=== PATIENT | female | born 1950 | race Caucasian/White ===

== ENCOUNTER 2020-08-04 06:23 | Observation (INO) ==
--- NOTE | 2020-07-29 08:08 | ANES ---
Anesthesia Pre Procedure Eval HOME MEDICATIONS Ascorbic Acid [Vitamin C] 500 mg PO DAILY 07/03/12 [Last Taken Unknown] Aspirin [Aspir-Low] 81 mg PO DAILY 07/03/12 [Last Taken Unknown] Clopidogrel Bisulfate [Plavix] 75 mg PO DAILY 07/03/12 [Last Taken Unknown] Iron 18 mg PO DAILY 07/03/12 [Last Taken Unknown] Multivit-Min36/Iron/Folic Acid [Geritol Complete Tablet] 1 ea PO DAILY 07/03/12 [Last Taken Unknown] [place] Oil/[place]-3 Fatty Acids [Fish Oil] 1,200 mg PO BID 07/03/12 [Last Taken Unknown] hydroxychloroquine 200 mg tablet 200 mg PO BID 06/27/19 [Last Taken Unknown] acetaminophen 650 mg tablet,extended release 650 mg PO Q12H PRN 05/07/20 [Last Taken Unknown] magnesium 250 mg tablet 250 mg PO DAILY 06/17/20 [Last Taken Unknown] turmeric 400 mg capsule mg PO DAILY cap 06/17/20 [Last Taken Unknown] Allergies/Adverse Reactions: Allergies Allergy/AdvReac Type Severity Reaction Status Date / Time Penicillins Allergy rash Verified 06/04/20 14:26 - Planned Procedure Planned Procedure: LT Arthroplasty Total Hip Medication List Reviewed:: Yes Allergies Verified: Yes Medical History (Last Reviewed 07/29/20 @ 08:08 by Kevin Lombardi CRNA) Primary osteoarthritis of left hip (Chronic) Fracture of coronoid process of left ulna (Acute) Radial head fracture, closed (Acute) CVA (cerebral vascular accident) Onset Date: 10/08/09 massive stroke with no residual effects Essential hypertension Onset Date: 1993 Hx of ectopic Onset Date: 1989 Lupus erythematosus Onset Date: 06/2008 subacute cutaneous lupus Postmenopausal Onset Date: 06/22/12 Postmenopausal atrophic vaginitis Onset Date: 06/22/12 Seborrheic keratosis Onset Date: 06/22/12 Squamous cell carcinoma Onset Date: 2008 skin cancer on face-1990 &2008 Tachycardia Onset Date: 1993 had heart ablation don 2004 Surgical History (Last Reviewed 07/29/20 @ 08:08 by Kevin Lombardi CRNA) H/O prior ablation treatment Onset Date: 1989 done for rapid heart rate History of colonoscopy Onset Date: 07/04/12 '98 colitis. 12 Tinguely-normal. Recheck 10 yrs.- 1997, 07/04/12 History of excision of lesion Onset Date: 2008 face- basal cell-1990, 2008 History of hip replacement Onset Date: 08/2014 right- [place] History of tubal ligation Onset Date: 1979 laparoscopic tibal sterization S/P ectopic Onset Date: 1989 ectopic, status post tubal sterization, on 01/24/1990 had exploratory lap for lt ectopic preg.Removed Lt proximal tube segment, rt tube segment, lt tube and ovary. Uterus bleeding Onset Date: 1972 pt had repair of uterine wall rupture, immed . Appar had partial placenta accreta and was transfused of 4 pts blood Family History (Last Reviewed 07/29/20 @ 08:08 by Kevin Lombardi CRNA) Mother , age 65 Diabetes Cancer breast Heart failure Father , age 66 Cancer prostate Brother Alive and well Sister Hypertension Cancer lumpectomy for breast cancer Grandmother Cancer stomach Grandmother Cancer cancer on leg Osteoporosis Aunt Cancer 2 maternal aunts breast cancer, 2 paternal aunts breast cancer - Family Anesthesia History Family History:: no untoward family reactions to anesthesia - Airway/Neck/Teeth Within Normal Limits:: Yes Teeth Condition: intact - Respiratory Smoking Status: Never smoker Sleep Apnea currently treated: No Sleep Apnea by current assessment: No - Cardiovascular Cardiac History: CVA/stroke Tolerate Activity: Fair - Gastrointestinal NPO since: instructed npo after mn - Anesthesia Assessment and Plan ASA Class: PS, III Anesthesia Type Plan: Spinal Planned difficult intubation/equipment available: No
[~2020-08-04 06:23] MED LIST: MORPHINE SULFATE 15 MG TABLET.SA PO PRN; ROPIVACAINE HCL/PF 100 MG, EPINEPHrine 0.2 MG, KETOROLAC TROMETHAMINE 30 MG in NORMAL S... IJ PRN; TRANEXAMIC ACID 1,000 MG in NORMAL SALINE 100 ML IV PRN; ceFAZolin SODIUM 1 GM VIAL IV PRN
[2020-08-04] MEDS ORDERED: ISOPROPYL ALCOHOL 480 APPL BTL MC ONE (06:27)
[2020-08-04] MEDS ORDERED: ceFAZolin SODIUM 1 GM VIAL ONE (06:27)
[2020-08-04] MEDS: RINGER'S SOLUTION,LACTATED 1,000 ML IV PRN ×3 (06:56→09:45)
[2020-08-04] MEDS ORDERED: PROPOFOL VIAL IV ONE (07:09)
[2020-08-04] MEDS ORDERED: NORMAL SALINE 20 ML VIAL ONE (07:09)
[2020-08-04] MEDS ORDERED: LIDOCAINE HCL 20 ML VIAL ONE (07:09)
[2020-08-04] MEDS ORDERED: MIDAZOLAM HCL/PF 5 MG/ML VIAL ONE (07:09)
[2020-08-04] MEDS ORDERED: BUPIVACAINE HCL/EPINEPHRINE 50 ML VIAL ONE (07:10)
[2020-08-04] MEDS ORDERED: BUPIVACAINE HCL/PF 10 ML VIAL ONE (07:11)
[2020-08-04] MEDS ORDERED: ZOLPIDEM TARTRATE 5 MG TABLET PO PRN (09:47)
[2020-08-04] MEDS ORDERED: ACETAMINOPHEN 500 MG TABLET PO PRN (09:47)
[2020-08-04] MEDS ORDERED: MORPHINE SULFATE 2 MG/ML DISP.SYRIN IV PRN (09:47)
[2020-08-04] MEDS ORDERED: ONDANSETRON HCL/PF 2 MG/ML VIAL IV PRN (09:47)
[2020-08-04] MEDS ORDERED: DEXTROSE 5%-LACTATED RINGERS 1,000 ML IV PRN (09:47)
[2020-08-04] MEDS ORDERED: MAG HYDROX/ALUMINUM HYD/SIMETH 30 ML UDC PO PRN (09:47)
[2020-08-04] MEDS ORDERED: MAGNESIUM HYDROXIDE 30 ML UDC PO PRN (09:47)
[2020-08-04] MEDS ORDERED: diphenhydrAMINE HCL 50 MG/ML VIAL IV PRN (09:47)
--- NOTE | 2020-08-04 09:47 | OR ---
Operative Report - Dictated Report Narrative: Date: 08/04/2020 Preoperative diagnosis: Left hip degenerative joint disease. Postoperative diagnosis: Left hip degenerative joint disease. Procedure: Left total hip arthroplasty. Surgeon: Ronaldo Mon M.D. [employer] Manager: Aurelio Tatum PA-C (provided an essential set of skilled, educated and assisted with transfer, positioning, prepping, draping, manipulation, traction, irrigation, suturing, and placement of dressings all of which cannot be performed by the available surgical crew) Anesthesia: Spinal and local periarticular joint injection. Complications: None Specimens: Bone. Estimated blood loss: 150 milliliters. Retained implants: Depuy [place] size 5 femoral stem standard offset. Size 54 millimeter outside diameter 3-hole [place] Gription acetabular cup. 54 millimeter outside by 36 millimeter inside diameter highly cross-linked acetabular liner. 36 millimeter diameter + 8.5 millimeter cobalt chromium femoral head. Cancellous 6.5mm screw 30 millimeter length Indications: Mrs. Levy is a 70-year-old female who has had longstanding left hip pain and arthrosis. This patient was followed in my clinic for period of time with significant complaints of left hip pain consistent with arthritic changes. She failed conservative measures including but not limited to activity modification, passage of time, medications, and other conservative measures. Patient wished to proceed with surgical treatment. The risks, benefits, and alternatives were discussed in clinic. The risks of , blood clots, bleeding, infection, nerve/tendon blood vessel/ injury, malposition of components, dislocation and/or instability of joint, intraoperative fracture, postoperative limited range of motion, persistent pain, failure of components, and need for additional procedures. Patient wished to proceed. Consent was obtained after answering all questions. Procedure: After marking the correct extremity on the floor, the patient was taken to the operating room. A timeout was performed. IV antibiotics consisting of Ancef were administered prior to the procedure. A spinal anesthetic was induced by anesthesia. A Chao catheter was inserted. The patient was then transitioned to a lateral position on a well-padded pegboard. An axillary roll was placed. The head was in neutral position. The non- operative down leg was well-padded with SCD and GIOVANNA hose in place. The arms were supported and padded to protect from any undue pressure on the bony prominences and nerves. A well-padded anterior and posterior pelvic and chest posts were secured in order to maintain a stable position of the pelvis. This was placed so that the pelvis was perpendicular to the floor. The body was in line with the pelvis. Once it was felt that we had protected all the bony prominences and the patient was well secured with a safety belt as well, the leg was pre-scrubbed with alcohol, prepped and draped in a standard sterile fashion. A standard anterior lateral hip incision was marked out over the greater trochanter. [place]an drapes were then placed. The skin incision was then made. Sharp dissection with a scalpel utilizing cautery for hemostasis was carried out down to the gluteus and iliotibial band fascia. This was split in line with the skin incision. The greater trochanter bursa was excised. The anterior and posterior margins of the abductor tendon were identified. The anterior 1/2-1/3 of the tendon was tagged and reflected off the greater trochanter leaving a sleeve of tendon for repair at the completion of the case. This exposed the underlying hip joint capsule. An inverted T-type capsulotomy was made extending this up to the brim of the acetabulum. Using Homans to assist with elevation of the soft tissues off the anterior, superior, and inferior aspects of the femoral neck, the hip was then placed in a figure 4 position and the femoral head was dislocated. With the leg in an externally rotated and adducted position, the cutting flag was utilized in order to rubin for a standard femoral neck cut approximately a fingerbreadth above the level of the lesser trochanter. This was done with reference to pre-operative films and overall alignment. This was done while protecting the surrounding soft tissues with Homans. The femoral head was then removed and sized for guidance on preparation of the acetabulum. It was noted that there was loss of articular cartilage on both the femoral head and weightbearing portions of the acetabulum. We then returned the leg to the table and turned our attention to the acetabulum. While protecting the surrounding soft tissues, the labrum and remaining tissue in the fovea were excised using a scalpel and cautery. A series of reamers up to size 54 millimeter were utilized to prepare the acetabulum. The final reamer had good purchase and exposed the bleeding subchondral bone. The acetabulum was then thoroughly irrigated ensuring that all bony and cartilaginous materials were removed, and the final acetabular shell was impacted into place. This was placed in approximately 45 degrees of abduction and 20 degrees of anteversion utilizing the outrigger and body axis for alignment. This had a good press fit. 1 6.5mm cancellous screw was placed in the superior posterior quadrant of the acetabulum. The shell was then thoroughly irrigated and the final polyethylene was impacted into place ensuring that it seated completely. This was then protected with a sponge while we returned our attention to the femur. With the leg in a figure 4 position, utilizing Homans for soft tissue protection, a box cutting osteotome, followed by Rasheed awl, followed by serial reamers and broaches were utilized in order to prepare the femur. It was found that a size 5 broach gave good axial and rotational stability. The proximal femur was visualized to ensure that there were no signs of fracture. A series of heads and necks were trialed. It was found that a standard offset neck and a + 8.5 femoral head gave good overall stability. There was minimal longitudinal instability. With the leg in the position of sleep, the femoral head was well covered. Hip range of motion was able to reach full extension and external rotation to greater than 75 degrees prior to impingement along the posterior acetabulum. The hip was able to be flexed to greater than 90 degrees with internal rotation greater than 60 degrees prior to anterior impingement. The limb lengths were near equal based on comparison to the contralateral side and the prior placed limb length stitch. At this point it was felt these were the appropriately sized femoral components as well as neck and femoral head. The trial implants were removed. The femur was thoroughly irrigated. The final implants were impacted into place, and the hip was reduced. After ensuring that there was no damage to the proximal femur, the standard periarticular joint injection of ropivacaine, Toradol, and epinephrine were injected into the joint capsule and surrounding soft tissues. Anesthesia then administered intravenous tranexamic acid. The capsule was repaired with a single interrupted #1 Vicryl. The abductor tendon was repaired to the greater trochanter utilizing #5 Ethibond through drill holes. This was oversewn with #1 Vicryl. The fascia was closed with interrupted #1 Vicryl and #1 Stratafix barbed suture. The wounds were thoroughly irrigated as we closed in layers. The deep and subcutaneous fat layers were closed with 0 and 3-0 Vicryl respectively. The subcutaneous tissue was closed with a running 3-0 Vicryl and the skin charu. All sponge, needle, blade, and instrument counts were correct prior to closing the wounds. Sterile dressings consisting of xeroform, 4 x 4's, and tape were applied. The patient was awoken and transferred to her hospital bed and then to the postanesthesia care unit in stable condition. Postoperative condition: The plan is to admit to the medical/surgical inpatient floor postoperatively. There will be a projected 1 to 3 day hospital stay. Postoperatively 24 hours of IV antibiotics, pain control, physical therapy, occupational therapy, and medical comanagement will be utilized. Patient will be weightbearing as tolerated with anterior hip precautions. Postoperative films will be obtained in the recovery room.
--- NOTE | 2020-08-04 10:06 | ANES ---
Post Anesthesia Discharge - Transfer of Care Transfer of Care handoff given to nurse: Yes - Discharge from PACU Discharge from PACU when meets criteria: Yes
[2020-08-04] MEDS: ceFAZolin SODIUM 1 GM in DEXTROSE 5 % IN WATER 100 ML IV SCH ×4 (10:51→17:59)
[2020-08-04] MEDS: KETOROLAC TROMETHAMINE 15 MG/ML VIAL IV SCH ×3 (10:51→23:58)
--- NOTE | 2020-08-04 11:55 | ANES ---
Post Anesthesia Assessment - Vital Signs Vitals: Last Vital Signs Temp 36.0 C 08/04/20 10:25 Pulse 70 08/04/20 10:25 Resp 14 08/04/20 10:25 BP 133/58 08/04/20 10:25 Pulse Ox 100 08/04/20 10:25 Airway Patency: Normal - Mental Status Level Of Consciousness: Awake - Pain Level Pain Score: 0 - N/V Assessment Nausea/Vomiting Presence: None
[2020-08-04] MEDS: oxyCODONE HCL/ACETAMINOPHEN 1 TAB TABLET PO PRN ×2 (15:16→21:16)
[2020-08-04] MEDS ORDERED: SENNOSIDES/DOCUSATE SODIUM 1 TAB TABLET PO SCH (21:00)
[2020-08-04] MEDS: HYDROXYCHLOROQUINE SULFATE 200 MG TABLET PO SCH (21:15)
[2020-08-04] MEDS: OMEGA-3 FATTY ACIDS 1 CAP CAPSULE PO SCH (21:16)
[2020-08-05] MEDS: ceFAZolin SODIUM 1 GM in DEXTROSE 5 % IN WATER 100 ML IV SCH ×2
[2020-08-05] MEDS: KETOROLAC TROMETHAMINE 15 MG/ML VIAL IV SCH ×2 (04:44→10:13)
[2020-08-05 06:36] LABS: Hemoglobin 10.4 gm/dL (12.5-16.0); Mean Cell Volume 93.8 fl (78-100); Mean Corpuscular Hemoglobin 29.5 pg (27-31); Mean Corpuscular Hgb Conc 31.5 g/dl (32-36); Platelet Count 191 K/mm3 (150-450); Red Blood Count 3.52 M/mm3 (4.2-5.4); Red Cell Distribution Width 12.3 % (11.5-14.0); White Blood Count 7.6 K/mm3 (4.0-10.5)
[2020-08-05 06:49] LABS: Anion Gap 9.9 mmol/L (6.8-13.8); BUN/Creatinine Ratio 14.3 (9.0-21.6); Calcium * 8.6 mg/dL (7.9-10.9); Carbon Dioxide 28.1 mmol/L (24-32.6); Estimated Creat Clear 62.9
[2020-08-05] MEDS ORDERED: ENOXAPARIN SODIUM 40 MG/0.4 ML SYRG SC SCH (08:47)
[2020-08-05] MEDS ORDERED: MULTIVIT-MIN/FA/LYCOPEN/LUTEIN 1 TAB TABLET PO SCH (09:00)
[2020-08-05] MEDS ORDERED: FERROUS SULFATE 325 MG TABLET PO SCH (09:00)
[2020-08-05] MEDS ORDERED: ASCORBIC ACID 500 MG TABLET PO SCH (09:00)
[2020-08-05] MEDS ORDERED: MAGNESIUM OXIDE 400 MG TABLET PO SCH (09:00)
[2020-08-05] MEDS: OMEGA-3 FATTY ACIDS 1 CAP CAPSULE PO SCH (09:22)
[2020-08-05] MEDS: HYDROcodone/ACETAMINOPHEN 1 EACH TABLET PO PRN ×2 (09:22→14:12)
[2020-08-05] MEDS: HYDROXYCHLOROQUINE SULFATE 200 MG TABLET PO SCH (09:23)
--- NOTE | 2020-08-05 14:44 | DS ---
(1) Status post left hip replacement Problem: Acute (2) Primary osteoarthritis of left hip Problem: Chronic (3) Hypertension Problem: Chronic (4) CVA (cerebral vascular accident) Problem: Chronic Hospital Course: Mrs. Levy was admitted to the floor after undergoing left total hip arthroplasty. Tolerated this well. Was admitted to the floor postoperatively for 24 hours of IV antibiotics, pain control, medical comanagement, and occupational and physical therapy. OT and PT were consulted to assist with activities of daily living and ambulation. Was made weightbearing as tolerated with range of motion as tolerated utilizing anterior precautions. Pain was initially controlled with IV regimen. This was transitioned to oral once tolerating a by mouth intake. Was resumed on home diet and medications. Had a Chao catheter inserted and the operating room which was discontinued on postoperative day 1. Lovenox SCD and GIOVANNA hose were utilized for DVT prophylaxis. Vital signs remained stable to the hospital course. Serial labs were obtained which showed a final hemoglobin of 10.4 grams. BMP was reviewed and was stable. Physical examination throughout the hospital course showed an extremity that had sensation that was intact to light touch, palpable pulses, a benign wound, motor intact to the toes, ankle, and knee Once an oral pain regimen was tolerated and physical therapy goals were met, it was felt that they were stable for discharge to home. Instructions: Continue with weightbearing as tolerated and range of motion as tolerated. Keep incision clean and dry. If you note any drainage or for comfort you can cover with dry gauze and tape. Change every 2-3 days as needed. Continue with physical therapy. Resume home diet. Report any fever over 101.5 Fahrenheit, uncontrolled pain, increased drainage, foul odor of drainage, new or increased calf pain or shortness of breath, or any other significant complaints. A 325mg dialy aspirin will be started after finishing anticoagulation if not allergic. Continue with GIOVANNA hose on the operative extremity until instructed otherwise. No driving until instructed otherwise. Follow up in approximately 10-14 days. Procedures Performed: see notes below List Procedures: Left total hip arthroplasty Results and Findings: Lab Pending Results 08/05/20 05:50: WBC 7.6, RBC 3.52 L, Hgb 10.4 L, Hct 33.0 L, MCV 93.8, MCH 29.5, MCHC 31.5 L, RDW 12.3, Plt Count 191, MPV 10.0 08/05/20 05:50: Sodium 139, Plasma Sodium 139, Potassium 4.0, Chloride 105, Carbon Dioxide 28.1, Anion Gap 9.9, BUN 12, Creatinine 0.84, Est GFR (Non-Af Amer) 71, BUN/Creatinine Ratio 14.3, Random Glucose 124 H, Calcium 8.6 Discharge Location: Home Disposition: Home self-care Condition: Good Discharge Activity: Activity as tolerated - Utilizing anterior hip precautions with wheeled walker, Weight bearing Discharge Diet: Low salt Referrals: Edu Kidd MD [Primary Care Provider] - Additional Patient Instructions (free text): Physical Therapy at [facility] in [place] [employer] on MondayAugust 07 at 11:15am. Please ask patient to bring insurance cards and medication list to the appointment. Please fax demographics and PT order to [phone]. Also fax chart info to PCP Dr Kidd. Follow up [facility] Orthopedic appointment with Bernardo ANDERSON on 08/19/20 at 1:[address] Mon with any questions or concerns at [phone]. Prescriptions (Any new or edited meds): Enoxaparin Sodium [Lovenox] 40 mg SC Q24H #7 disp.syrin Transmission Status: Received by [facility] Sennosides/Docusate Sodium [Senokot-S] 2 tab PO HS #30 tab Transmission Status: Received by [facility] Complete Home Medications List: Complete Home Medication List: Ascorbic Acid [Vitamin C] 500 mg PO HS 07/03/12 Aspirin [Aspir-Low] 81 mg PO DAILY 07/03/12 Clopidogrel Bisulfate [Plavix] 75 mg PO DAILY 07/03/12 Multivit-Min36/Iron/Folic Acid [Geritol Complete Tablet] 1 ea PO DAILY 07/03/12 [place] Oil/[place]-3 Fatty Acids [Fish Oil] 1,200 mg PO DAILY 07/03/12 hydroxychloroquine 200 mg tablet 200 mg PO BID 06/27/19 acetaminophen 650 mg tablet,extended release 650 mg PO Q12H PRN 05/07/20 magnesium 250 mg tablet 250 mg PO DAILY 06/17/20 turmeric 400 mg capsule 400 mg PO DAILY cap 06/17/20 Ferrous Sulfate [High Potency Iron] 27 mg PO Q2D 08/04/20 Enoxaparin Sodium [Lovenox] 40 mg SC Q24H #7 disp.syrin 08/05/20 Ferrous Sulfate 325 mg PO DAILY tab 08/05/20 HYDROcodone/ACETAMINOPHEN [[place] 5-325] 1 ea PO Q3H PRN #0 tab 08/05/20 Sennosides/Docusate Sodium [Senokot-S] 2 tab PO HS #30 tab 08/05/20 hydrocodone 5 mg-acetaminophen 325 mg tablet 2 tab PO Q6H PRN #56 tab MDD 6 08/05/20
[2020-08-05 15:06] VITALS: BP 145/61
== END 2020-08-05 15:43 | disposition home or self-care (01) ==
LOC: MS 06:23 → SUR 06:23
PROVIDERS: ADMIT Orthopaedic Surgery; ATTEND Orthopaedic Surgery